=== PATIENT | male | born 1975 | race Caucasian/White ===

== ENCOUNTER 2018-01-24 16:30 | Emergency (ER) | payer OTHER ==
--- NOTE | 2018-01-24 17:08 | EDM.PDOC ---
ED HPI GENERAL MEDICAL PROBLEM - General Chief Complaint: Laceration Stated Complaint: CUT ON PT'S FINGER ON LT HAND Time Seen by Provider: 01/24/18 16:51 Source of Information: Reports: Patient History Limitations: Reports: No Limitations - History of Present Illness INITIAL COMMENTS - FREE TEXT/NARRATIVE: HISTORY AND PHYSICAL: History of present illness: Patient is a 42-year-old male who presents to the emergency room with complaints of a laceration to his left index finger. He was working with a razor blade when it slipped and cut the left distal tip of the index finger. He denies any numbness or tingling. Denies any loss of strength. No injury such as crush injury or trauma. His tetanus is up-to-date Review of systems: As per history of present illness and below otherwise all systems reviewed and negative. Past medical history: As per history of present illness and as reviewed below otherwise noncontributory. Surgical history: As per history of present illness and as reviewed below otherwise noncontributory. Social history: No reported history of drug or alcohol abuse. Family history: As per history of present illness and as reviewed below otherwise noncontributory. Physical exam: General: Developed and well-nourished 42-year-old male. Alert and oriented. Nontoxic appearing and in no acute distress. HEENT: Atraumatic, normocephalic, pupils equal and reactive bilaterally, negative for conjunctival pallor or scleral icterus, mucous membranes moist, throat clear, neck supple, nontender, trachea midline. No drooling or trismus noted. No meningeal signs Lungs: Clear to auscultation, breath sounds equal bilaterally, chest nontender. Heart: S1S2, regular rate and rhythm without overt murmur Abdomen: Soft, nondistended, nontender. Negative for masses or hepatosplenomegaly. Negative for costovertebral tenderness. Pelvis: Stable nontender. Genitourinary: Deferred. Rectal: Deferred. Skin: 3 cm laceration to distal tip of left index finger; no involving the nail. Intact, warm, dry. No lesions or rashes noted. Extremities: Moves all extremities per self without difficulty or deficits, negative for cords or calf pain. Neurovascular unremarkable. Neuro: Awake, alert, oriented. Cranial nerves II through XII unremarkable. Cerebellum unremarkable. Motor and sensory unremarkable throughout. Exam nonfocal. Notes: Area was cleansed with chlorhexidine and wound wash. 1% lidocaine was used to anesthetize the area. Wound was explored with no foreign debris noted. Patient has good strength of the thumb and is able to push and pull without any complications does not appear to have any tendon involvement. 4-0 nylon was used to close the wound, # 7 interrupted. Patient tolerated well. Supportive care measures were reviewed and discussed. Signs and symptoms that would prompt him to return to the emergency room were discussed. He denies any further questions or concerns at this time. Diagnostics: None Therapeutics: Wound care, 1% lidocaine, bacitracin Prescription: None Impression: Laceration, left thumb Plan: 1. Rest, ice, elevate the affected extremity. Please keep the area clean and dry. Monitor for signs of infection. Sutures to be removed in 7-10 days. 2. Tylenol and/or ibuprofen as needed for pain management. 3. Follow-up with your primary care provider in the next 1-2 days. Return to the ED as needed and as discussed. Definitive disposition and diagnosis as appropriate pending reevaluation and review of above. left index finger, laceration Pain Score (Numeric/FACES): 3 - Related Data Allergies Allergy/AdvReac Type Severity Reaction Status Date / Time No Known Allergies Allergy Verified 01/24/18 17:23 Home Meds: Home Meds . [No Known Home Meds] 09/12/15 [History] Past Medical History - Past Health History Medical/Surgical History: Denies Medical/Surgical History - Infectious Disease History Infectious Disease History: Reports: None Social & Family History - Family History Family Medical History: Noncontributory ED ROS GENERAL - Review of Systems Review Of Systems: ROS reveals no pertinent complaints other than HPI. ED EXAM, SKIN/RASH Exam: See Below (See dictation) ED SKIN PROCEDURES - Laceration/Wound Repair Left thumb Lac/Wound length In cm: 3 Appearance: Linear Local Anesthesia - Lidocaine (Xylocaine): 1% Plain Local Anesthetic Volume: 5cc Skin Prep: Chlorhexidine (Hibiciens), Saline, Sterile Drape Saline Irrigation (cc's): 20 Exploration/Debridement/Repair: Wound Explored, In a Bloodless Field, No Foreign Material Found Suture Size: 4-0 # of Sutures: 7 Suture Type: Nylon Sterile Dressing Applied: Provider Tetanus Status Addressed: Yes Complications: No Course - Vital Signs Last Recorded V/S: Last Vital Signs Temp 97.7 F 01/24/18 17:21 Pulse 70 01/24/18 17:21 Resp 18 01/24/18 17:21 BP 116/74 01/24/18 17:21 Pulse Ox 95 01/24/18 17:21 - Orders/Labs/Meds Meds: Medications Discontinued Medications Generic Name Dose Route Start Last Admin Trade Name Chica PRN Reason Stop Dose Admin Lidocaine HCl Confirm 01/24/18 17:27 01/24/18 18:08 Xylocaine-Mpf 1% Administered 01/24/18 17:28 Not Given Dose 5 mls @ as directed .ROUTE .STK-MED ONE Lidocaine HCl 5 ml 01/24/18 17:25 01/24/18 18:08 Xylocaine-Mpf 1% INJECT 01/24/18 17:26 5 ml ONETIME ONE Administration Departure - Departure Time of Disposition: 18:04 Disposition: Home, Self-Care 01 Clinical Impression: Laceration - Discharge Information Instructions: Laceration Care, Adult, [id number] Referrals: PCP,None [Primary Care Provider] - Forms: ED Department Discharge Additional Instructions: The following information is given to patients seen in the emergency department who are being discharged to home. This information is to outline your options for follow-up care. We provide all patients seen in our emergency department with a follow-up referral. The need for follow-up, as well as the timing and circumstances, are variable depending upon the specifics of your emergency department visit. If you don't have a primary care physician on staff, we will provide you with a referral. We always advise you to contact your personal physician following an emergency department visit to inform them of the circumstance of the visit and for follow-up with them and/or the need for any referrals to a consulting specialist. The emergency department will also refer you to a specialist when appropriate. This referral assures that you have the opportunity for follow-up care with a specialist. All of these measure are taken in an effort to provide you with optimal care, which includes your follow-up. Under all circumstances we always encourage you to contact your private physician who remains a resource for coordinating your care. When calling for follow-up care, please make the office aware that this follow-up is from your recent emergency room visit. If for any reason you are refused follow-up, please contact the [facility] Emergency Department at and asked to speak to the emergency department charge nurse. [facility] [address] [place] [id number] 1. Rest, ice, elevate the affected extremity. Keep the area clean and dry. Monitor for signs of infection. Sutures to be removed in 7-10 days. 2. Tylenol and/or ibuprofen as needed for pain management. 3. Follow-up with your primary care provider in the next 1-2 days. Return to the ED as needed and as discussed.
[2018-01-24 17:23] VITALS: BP 116/74
== END 2018-01-24 18:22 | disposition home or self-care (01) ==
LOC: MW.ED 16:30
DX: S61.211A Laceration without foreign body of left index finger without damage to nail, initial encounter (principal); W26.8XXA Contact with other sharp object(s), not elsewhere classified, initial encounter
CPT/HCPCS: 12002; 99282

== ENCOUNTER 2020-05-14 14:35 | Emergency (ER) | payer SELFPAY ==
[2020-05-14] MEDS ORDERED: EPINEPHrine 1:10,000 1 MG/10 ML Syringe IVPUSH ONE ×2 (14:36→14:45)
[2020-05-14] MEDS ORDERED: Calcium Chloride 10% 1 GM/10 ML Syringe IVPUSH ONE (14:36)
[2020-05-14] MEDS ORDERED: Magnesium Sulfate (4.06 MEQ/ML) 5 GM/10 ML SDV IV ONE ×2 (14:36→14:52)
[2020-05-14] MEDS ORDERED: Atropine 0.1 MG/ML 10 ML Syringe IVPUSH ONE ×2 (14:39→14:45)
[2020-05-14] MEDS ORDERED: Sodium Bicarbonate 8.4% 50 MEQ/50 ML Syringe IVPUSH ONE (14:43)
[2020-05-14] MEDS ORDERED: Amiodarone 300 MG in Dextrose 5% in Water 100 ML IV ONE ×2 (14:50)
[2020-05-14] MEDS ORDERED: Magnesium Sulfate/Water 2 GM/50 ML BAG IV ONE (17:30)
--- NOTE | 2020-05-14 17:35 | EDM.PDOC ---
ED HPI GENERAL MEDICAL PROBLEM - General Chief Complaint: Trauma Stated Complaint: CODE BLUE Time Seen by Provider: 05/14/20 15:06 - History of Present Illness INITIAL COMMENTS - FREE TEXT/NARRATIVE: CHIEF COMPLAINT(S): Cardiac arrest HISTORY OF PRESENT ILLNESS: This is a 45-year-old man who presents to the emergency department as a medical resuscitation via EMS with a chief complaint of cardiac arrest. Per EMS: They were called to the detention after the patient had hung himself in his cell. On arrival they were doing CPR. They stated that they continued CPR for approximately 30 minutes and provided 6 doses of epinephrine and some bicarb. The patient was PEA and they reported third-degree heart block. They stated that initially the patient was bradycardic therefore they provided the patient with atropine and placed a Miguel airway. They said there was a significant amount of vomitus in the airway. They stated that prior to the workers at the detention starting CPR the last time he was known to be alive was approximately 1 hour prior. They stated that he was hung by a sheet. They transported the patient to the emergency department for further treatment. Otherwise history is limited. REVIEW OF SYSTEMS: Unable to obtain secondary patient clinical condition PAST MEDICAL HISTORY: Unable to obtain secondary to patient clinical condition. SURGICAL HISTORY: Unable to obtain secondary patient clinical condition ALLERGIES: None in EMR SOCIAL HISTORY: Unable to obtain secondary to patient clinical condition FAMILY HISTORY: Unable to obtain secondary patient clinical condition. EXAMINATION OF ORGAN SYSTEMS/BODY AREAS: VITALS: Heart rate 0, blood pressure 0, respiratory rate 0. Pulse Oximetry unable to be obtained GENERAL: Unresponsive male undergoing CPR. HEAD: Normocephalic, atraumatic. EYES: Pupils were fixed and dilated. ENT. External ears WNL. Nares patent. Vomitus in the airway. Miguel airway in place. No obvious tongue or uvular swelling.. NECK: Trachea was midline. There is a ligature gabriela on the patient's right anterior neck just below his chin extending to the inferior part of his right ear. LUNGS: Bilateral breath sounds via [id number]. CARDIOVASCULAR: Pulseless ABDOMEN: Soft, nondistended MUSCULOSKELETAL: No deformity NEUROLOGICAL: GCS of 3 SKIN: Mottling of bilateral lower extremities. MEDICAL DECISION MAKING AND COURSE IN THE ED WITH INTERPRETATION/REVIEW OF DIAGN OSTIC STUDIES: This is a 45-year-old man who presents to the emergency department as a medical resuscitation via EMS after a apparent suicide attempt by hanging with approximately 40 to 45 minutes of CPR prior to arrival. Immediately upon entering the resuscitation room the patient was disrobed, placed on continuous cardiac monitoring, and IV access was established by nursing. Patient had a Miguel airway in place with vomitus surrounding the tube therefore we did suction out the vomitus, breath sounds are equal bilaterally with bag valve mask ventilation, and patient was pulseless. At this time ATLS was continued. On the monitor the patient was asystolic therefore CPR was continued. There was a right IO in place therefore epinephrine was administered initially until IV access was obtained. Given that the Miguel tube airway had a significant amount of vomitus and given his bradycardic presentation at the detention I did place a definitive airway. Endotracheal Intubation Procedure Note INDICATION: Unable to protect airway PROCEDURE DISTRIBUTION LINEMAN: Myself CONSENT: Implied Emergent PROCEDURE SUMMARY: I wore a surgical cap, mask with protective eyewear, gown and gloves throughout the procedure. The patient was placed on a towboat pilot including continuous pulse oximetry. Using a glide scope and a size 7.0 endotracheal tube with stylet, the patient was intubated on the first attempt. The stylet was removed and cuff balloon was inflated. Appropriate endotracheal tube position was confirmed by direct visualization of vocal cord passage, fogging of the tube, CO2 colometric indicator and symmetric breath sounds. The tube was secured at 22 cm at the lips. After initial round of CPR the patient appeared to be in ventricular fibrillation therefore we did provide the patient with defibrillation and 300 mg of amiodarone and magnesium. We continued CPR and I placed a central line for medication administration. After approximately an additional 2 rounds the patient had continued ventricular fibrillation and I ordered esmolol for refractory ventricular fibrillation. However after third round of CPR the patient did have palpable pulses in the femoral region. While preparing for central line placement, the patient did lose pulses again and became bradycardic. Therefore I provided the patient with atropine and we continued CPR. A central line was placed by myself. Central Line Procedure The risks and benefits of the procedure were explained. Consent was emergent. The indication for central line placement was vasopressor support and cardiac medication administration during CPR. The patient was monitored during the entire procedure. Time out was performed. The patient's left groin was prepped and draped in a sterile fashion. A needle was entered into the femoral vein under landmark palpation with return of non-pulsatile flow. Guidewire was placed and triple lumen catheter was placed via Seldinger technique. Guidewire was removed. All 3 lines easily withdrew blood and were flushed with sterile saline. A Biopatch was placed and the line was secured. Patient tolerated procedure well. No complications. On recheck of pulse the patient was found to be in PEA and we continued CPR for an additional 2 minutes. On pulse check again the patient was again in PEA and was pulseless. Given that the patient at this time had received approximately 1 hour and 25 minutes of CPR continued resuscitation is futile therefore the patient was pronounced at 3 PM. I did contact the patient's father listed in the contact information informed him of his son's . The patient will be transferred to the medical coding technician for autopsy in [place]. DISPOSITION: To the medical coding technician CONDITION: Procedures: Cardiac monitoring interpretation FINAL IMPRESSION(S)/DIAGNOSES: 1. Acute cardiac arrest likely secondary to asphyxiation from intentional suicide attempt - Related Data Allergies Allergy/AdvReac Type Severity Reaction Status Date / Time No Known Allergies Allergy Unverified 05/14/20 15:10 Home Meds: Home Meds . [No Known Home Meds] 09/12/15 [History] Past Medical History - Past Health History Medical/Surgical History: Denies Medical/Surgical History - Infectious Disease History Infectious Disease History: Reports: Chicken Pox Social & Family History - Family History Family Medical History: No Pertinent Family History - Tobacco Use Tobacco Use Status *Q: Unknown Ever Used Tobacco - Caffeine Use Caffeine Use: Reports: Soda Review of Systems - Review of Systems Review Of Systems: See Below ED EXAM, GENERAL - Physical Exam Exam: See Below Course - Orders/Labs/Meds Orders: Active Orders 24 hr Category Date Time Status Magnesium Sulfate/Water [Magnesium Sulfate in Water Med 05/14/20 17:30 Active Premix] 2 gm in 50 ml IV ONETIME Medication Orders Magnesium Sulfate (Magnesium Sulfate In Water Premix) 2 gm in 50 mls @ 50 mls/hr IV ONETIME ONE Stop: 05/14/20 18:29 Meds: Medications Generic Name Dose Route Start Last Admin Trade Name Freq PRN Reason Stop Dose Admin Magnesium Sulfate 2 gm in 50 mls @ 50 mls/hr 05/14/20 17:30 Magnesium Sulfate In Water Premix IV 05/14/20 18:29 ONETIME ONE Discontinued Medications Generic Name Dose Route Start Last Admin Trade Name Chica PRN Reason Stop Dose Admin Atropine Sulfate 1 mg 05/14/20 14:39 05/14/20 14:39 Atropine 0.1 Mg/Ml IVPUSH 05/14/20 14:40 1 mg ONETIME ONE Administration Atropine Sulfate 1 mg 05/14/20 14:45 05/14/20 14:45 Atropine 0.1 Mg/Ml IVPUSH 05/14/20 14:46 1 mg ONETIME ONE Administration Calcium Chloride 1 gm 05/14/20 14:36 05/14/20 14:36 Calcium Chloride 10% IVPUSH 05/14/20 14:37 1 gm ONETIME ONE Administration Epinephrine HCl 1 mg 05/14/20 14:36 05/14/20 14:36 Epinephrine 1:10,000 IVPUSH 05/14/20 14:37 1 mg ONETIME ONE Administration Epinephrine HCl 1 mg 05/14/20 14:45 05/14/20 14:45 Epinephrine 1:10,000 IVPUSH 05/14/20 14:46 1 mg ONETIME ONE Administration Amiodarone HCl 300 mg/ 106 mls @ 300 mls/hr 05/14/20 14:50 Dextrose/Water IV 05/14/20 15:11 .BOLUS ONE Sodium Bicarbonate 50 meq 05/14/20 14:43 05/14/20 14:43 Sodium Bicarbonate 8.4% IVPUSH 05/14/20 14:44 50 meq ONETIME ONE Administration Departure - Departure Time of Disposition: 15:00 Disposition: 20 Preliminary Cause of *Q: Cardiac Arrest Clinical Impression: Cardiac arrest - Discharge Information *PRESCRIPTION DRUG MONITORING PROGRAM REVIEWED*: No *COPY OF PRESCRIPTION DRUG MONITORING REPORT IN PATIENT CADY: No Referrals: PCP,None [Primary Care Provider] - Sepsis Event Note (ED) - Evaluation Sepsis Screening Result: No Definite Risk - My Orders Last 24 Hours: My Active Orders 05/14/20 17:30 Magnesium Sulfate/Water [Magnesium Sulfate in Water Premix] 2 gm in 50 ml IV ONETIME - Assessment/Plan Last 24 Hours: My Active Orders 05/14/20 17:30 Magnesium Sulfate/Water [Magnesium Sulfate in Water Premix] 2 gm in 50 ml IV ONETIME
== END 2020-05-14 17:25 | disposition expired ==
LOC: MW.ED 14:35
DX: I46.9 Cardiac arrest, cause unspecified (principal)
CPT/HCPCS: 31500; 36556; 92950; 96374; 96375; 99285; J0171; J0282; J0461; J3475; J7060